=== PATIENT | female | born 2000 | race Two or more races ===

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

== ENCOUNTER 2020-01-06 16:39 | Emergency (ER) | payer MEDICAID, OTHER ==
[~2020-01-06] VITALS: Ht 157.5 cm; Wt 99.8 kg
[2020-01-06 19:17] VITALS: BP 129/88
== END 2020-01-06 19:52 | disposition home or self-care (01) ==
LOC: ER 16:39
DX: S43.401A Unspecified sprain of right shoulder joint, initial encounter (principal); M62.838 Other muscle spasm; V43.62XA Car passenger injured in collision with other type car in traffic accident, initial encounter; Y93.89 Activity, other specified; Y92.488 Other paved roadways as the place of occurrence of the external cause; Y99.8 Other external cause status
CPT/HCPCS: 73030

== ENCOUNTER 2023-01-19 21:56 | Emergency (ER) | payer MEDICAID ==
[~2023-01-19] VITALS: Ht 157.5 cm; Wt 114.0 kg
[2023-01-19] MEDS ORDERED: ACETAMINOPHEN 500 MG TAB PO ONE (22:45)
[2023-01-20] MEDS ORDERED: ONDANSETRON HCL 4 MG/2 ML VIAL IV ONE (00:45)
[2023-01-20] MEDS ORDERED: SODIUM CHLORIDE 0.9% 3,400 ML IV ONE (00:45)
[2023-01-20 01:45] VITALS: BP 139/78
== END 2023-01-20 01:54 | disposition home or self-care (01) ==
LOC: ER 21:56
DX: B34.9 Viral infection, unspecified (principal); R50.9 Fever, unspecified

== ENCOUNTER 2023-07-20 20:29 | Emergency (ER) | payer MEDICAID ==
[~2023-07-20] VITALS: Ht 157.5 cm; Wt 114.8 kg
[2023-07-21] MEDS ORDERED: HYDR-4902 PO (00:45)
[2023-07-21] MEDS ORDERED: IBUP1TAB5 PO (00:45)
[2023-07-21] MEDS ORDERED: HYDROcodone-ACET 5/325MG TAB PO ONE (00:45)
[2023-07-21] MEDS ORDERED: DexAMETHasone SOD PHOS 10MG/1ML VIAL INJ IM ONE (00:45)
[2023-07-21] MEDS ORDERED: CYCL-611 PO (00:45)
[2023-07-21] MEDS ORDERED: KETOROLAC TROMETH 60MG/2ML VIAL IM ONE (00:45)
[2023-07-21] MEDS ORDERED: diphenhdrAMINE HCL 25 MG CAP PO ONE (01:30)
[2023-07-21 01:51] VITALS: BP 115/76; PULSE 76; RESP 18; TEMP 98; O2SAT 98
== END 2023-07-21 01:55 | disposition home or self-care (01) ==
LOC: ER 20:29
DX: M62.830 Muscle spasm of back (principal); M54.50 Low back pain, unspecified
CPT/HCPCS: 72110; 96372; 99284; J1100; J1885

== ENCOUNTER 2024-07-19 21:43 | Emergency (ER) | payer MEDICAID ==
[~2024-07-19] VITALS: Ht 157.5 cm; Wt 104.5 kg
[~2024-07-19 21:43] MED LIST: CYCL-611 PO; HYDR-4902 PO; IBUP1TAB5 PO
[2024-07-19 22:51] VITALS: BP 153/83; PULSE 91; RESP 18; TEMP 98.2; O2SAT 97
[2024-07-19] MEDS: DexAMETHasone SOD PHOS 10MG/1ML VIAL INJ IM ONE (23:40)
[2024-07-19] MEDS ORDERED: KETOROLAC TROMETH 60MG/2ML VIAL IM ONE (23:45)
[2024-07-20] MEDS ORDERED: NAP500T PO (00:29)
[2024-07-20] MEDS ORDERED: METH-1181 PO (00:29)
== END 2024-07-20 00:47 | disposition home or self-care (01) ==
LOC: ER 21:43
DX: G44.209 Tension-type headache, unspecified, not intractable (principal); R42 Dizziness and giddiness
CPT/HCPCS: 96372; 99283; J1100; J1885